=== PATIENT | female | born 1975 | race Caucasian/White ===

== ENCOUNTER 2018-01-15 15:37 | Emergency (ER) | payer OTHER ==
[2018-01-15 17:02] VITALS: BP 115/74; PULSE 77; TEMP 99.9; BMI 26.2
[2018-01-15] MEDS ORDERED: IBUPROFEN 600 MG TABLET (FP) PO ONE ×2 (17:32→17:35)
--- NOTE | 2018-01-15 18:15 | PDOC ---
History of Present Illness - General Chief Complaint: Cold Symptoms Stated Complaint: FEVER, COUGH Time Seen by Provider: 01/15/18 17:00 History Source: Patient Exam Limitations: No Limitations - History of Present Illness Initial Comments: 01/15/18 17:32 42-year-old female presents to emergency room with complaints of myalgia, arthralgia, fever, cough worsening at night for the past 3 days. Patient states to the family member's home with similar symptoms. Patient states took Tylenolwith moderate relief for fever and states has been taking Robitussin with moderate relief of cough. Patient has no other complaints including difficulty breathing, headache, sore throat, ear pain neck stiffness, abdominal pain, or rash. Timing/Duration: reports: just prior to arrival Severity: reports: mild Possible Cause: Yes: no prior episodes Associated Symptoms: reports: cough, fever/chills Past History - Travel Traveled outside of the country in the last 30 days: Yes If so, where?: [place] Close contact w/someone who was outside of country & ill: No - Past Medical History Allergies/Adverse Reactions: Allergies Allergy/AdvReac Type Severity Reaction Status Date / Time No Known Allergies Allergy Verified 01/15/18 17:02 Home Medications: Ambulatory Orders NK [No Known Home Medication] 01/15/18 COPD: No - Suicide/Smoking/Psychosocial Hx Smoking History: Never smoked Have you smoked in the past 12 months: No Information on smoking cessation initiated: No Hx Alcohol Use: No Drug/Substance Use Hx: No Substance Use Type: None Patient Lives Alone: No Lives with/in: spouse/SO Review of Systems - Review of Systems Able to Perform ROS?: Yes Constitutional: Yes: Fever HEENTM: No: Symptoms Reported Respiratory: Yes: Cough Cardiac (ROS): No: Symptoms Reported ABD/GI: No: Symptoms Reported Musculoskeletal: Yes: Joint Pain, Muscle Pain Integumentary: No: Symptoms Reported Neurological: No: Symptoms reported *Physical Exam - Vital Signs Last Vital Signs Temp Pulse Resp BP Pulse Ox 99.9 F H 77 17 115/74 100 01/15/18 17:00 01/15/18 17:00 01/15/18 17:00 01/15/18 17:00 01/15/18 17:00 - Physical Exam General Appearance: Yes: Nourished, Appropriately Dressed. No: Apparent Distress HEENT: positive: EOMI, SUZAN, TMs Normal, Pharynx Normal. negative: Pale Conjunctivae Neck: positive: Normal Thyroid Respiratory/Chest: positive: Lungs Clear, Normal Breath Sounds. negative: Respiratory Distress, Accessory Muscle Use Cardiovascular: positive: Regular Rhythm, Regular Rate. negative: Murmur Gastrointestinal/Abdominal: positive: Soft. negative: Tenderness Integumentary: positive: Normal Color, Warm, Moist Neurologic: positive: Motor Strength 5/5 Medical Decision Making - Medical Decision Making 01/15/18 18:16 CC: URI s/s. no meds taken today Exam: no acute findings. Plan: influenza and motrin 01/15/18 18:17 Influenza swab negative *DC/Admit/Observation/Transfer Diagnosis at time of Disposition: Cough, Fever - Discharge Dispostion Disposition: HOME Condition at time of disposition: Good - Referrals - Patient Instructions Printed Discharge Instructions: DI for Common Cold Additional Instructions: Take Motrin or Tylenol for pain or fever. Drink plenty of fluids and rest as needed. - Post Discharge Activity
== END 2018-01-15 18:22 | disposition home or self-care (01) ==
LOC: JERFT 15:37
DX: J00 Acute nasopharyngitis [common cold] (principal)
CPT/HCPCS: 87804; 99281-25

== ENCOUNTER 2018-03-24 22:38 | Observation (INO) | payer OTHER ==
[2018-03-24 22:49] VITALS: BMI 27.3
--- NOTE | 2018-03-25 00:17 | PDOC ---
History of Present Illness - General History Source: Patient, Spouse - History of Present Illness Initial Comments: 03/25/18 00:34 The patient is a 42 year old female with no past medical history here today for evaluation of abdominal pain. The patient reports that her abdominal pain began 3 days ago, is constant, and is localized to the right upper quadrant. She reports associated cough, nausea, and vomiting (3 episodes last night) and notes that she did not eat today. The patient reports taking aleve and motrin which did not help. Patient denies headache, lightheadedness. Denies fever, chills. Denies chest pain, shortness of breath. Denies diarrhea. Denies lower extremity edema. Allergies: NKA Social history: denies tobacco and alcohol use Surgical history: (6 years ago) PCP: Fanny Sheffield <Lázaro Arias - Last Filed: 03/25/18 00:38> <Yaya Downey - Last Filed: 03/25/18 00:50> - General Chief Complaint: Pain, Acute Stated Complaint: VOMMITING AND STOMACH PAIN Time Seen by Provider: 03/25/18 00:16 Past History <Lázaro Arias - Last Filed: 03/25/18 00:38> - Past Medical History COPD: No - Suicide/Smoking/Psychosocial Hx Smoking History: Never smoked Have you smoked in the past 12 months: No Information on smoking cessation initiated: No Hx Alcohol Use: No Drug/Substance Use Hx: No Substance Use Type: None <Yaya Downey - Last Filed: 03/25/18 00:50> - Past Medical History Allergies/Adverse Reactions: Allergies Allergy/AdvReac Type Severity Reaction Status Date / Time No Known Allergies Allergy Verified 03/24/18 22:48 Home Medications: Ambulatory Orders NK [No Known Home Medication] 01/15/18 Review of Systems - Review of Systems Able to Perform ROS?: Yes Comments:: 03/25/18 00:34 CONSTITUTIONAL: No fever, no chills, no fatigue EYES: No visual changes ENT: No ear pain, no sore throat CARDIOVASCULAR: No chest pain, no palpitations RESPIRATORY: +cough. no SOB GI: +nausea. +right upper quadrant abdominal pain. +vomiting. no constipation, no diarrhea GENITOURINARY: No dysuria, no frequency, no hematuria MUSKULOSKELETAL: No backpain, no joint pain, no myalgias SKIN: No rash NEURO: No headache <Lázaro Arias - Last Filed: 03/25/18 00:38> *Physical Exam - Vital Signs Last Vital Signs Temp Pulse Resp BP Pulse Ox 97.6 F 85 16 134/54 L 97 03/24/18 22:46 03/24/18 22:46 03/24/18 22:46 03/24/18 22:46 03/24/18 22:46 - Physical Exam Comments: 03/25/18 00:38 CONSTITUTIONAL: Well-appearing; well-nourished; in no apparent distress HEAD: Normocephalic; atraumatic EYES: PERRL; EOM intact, no scleral icterus ENMT: +dry mucous membranes. External appears normal; normal oropharynx NECK: Supple; non-tender; no cervical lymphadenopathy CARD: Normal S1, S2; no murmurs, rubs, or gallops RESP: Normal chest excursion with respiration; breath sounds clear and equal bilaterally; no wheezes, rhonchi, or rales ABD: +right upper quadrant tenderness. +[place] sign. Soft, non-distended; no palpable organomegaly, no palpable hernias EXT: Normal ROM in all four extremities; non-tender to palpation; distal pulses intact SKIN: Warm, dry, no rash NEURO: No focal neurological deficiencies. <Lázaro Arias - Last Filed: 03/25/18 00:38> - Vital Signs Last Vital Signs Temp Pulse Resp BP Pulse Ox 97.6 F 85 16 134/54 L 97 03/24/18 22:46 03/24/18 22:46 03/24/18 22:46 03/24/18 22:46 03/24/18 22:46 <Yaya Downey - Last Filed: 03/25/18 00:50> Moderate Sedation - Procedure Monitoring Vital Signs: Procedure Monitoring Vital Signs Temperature 97.6 F 03/24/18 22:46 Pulse Rate 85 03/24/18 22:46 Respiratory Rate 16 03/24/18 22:46 Blood Pressure 134/54 L 03/24/18 22:46 O2 Sat by Pulse Oximetry (%) 97 03/24/18 22:46 <Lázaro Arias - Last Filed: 03/25/18 00:38> - Procedure Monitoring Vital Signs: Procedure Monitoring Vital Signs Temperature 97.6 F 03/24/18 22:46 Pulse Rate 85 03/24/18 22:46 Respiratory Rate 16 03/24/18 22:46 Blood Pressure 134/54 L 03/24/18 22:46 O2 Sat by Pulse Oximetry (%) 97 03/24/18 22:46 <Yaya Downey - Last Filed: 03/25/18 00:50> ED Treatment Course - LABORATORY CBC & Chemistry Diagram: 03/25/18 00:41 03/25/18 00:41 <Yaya Downey - Last Filed: 03/25/18 00:50> Medical Decision Making - Medical Decision Making 03/25/18 00:49 Patient is a 42-year-old female who presents with signs and symptoms of acute biliary colic. Patient is afebrile and in moderate distress. We'll obtain CBC/ CMP/lipase/UA. Will administer IV Toradol and IV fluids. Will obtain right upper quadrant ultrasound. Will reassess. <Yaya Downey - Last Filed: 03/25/18 00:50> *DC/Admit/Observation/Transfer - Attestations Scribe Attestion: 03/25/18 00:35 Documentation prepared by ALYSON Potter, acting as medical records library professor for Yaya Downey MD. <Lázaro Arias - Last Filed: 03/25/18 00:38> - Attestations Physician Attestion: 03/25/18 00:49 The documentation was prepared by the scribe under my direct supervision. I have reviewed the documentation which correctly represents the findings, medical decision-making and critical action taken by me. <Yaya Downey - Last Filed: 03/25/18 00:50> - Referrals Referrals: Fanny Sheffield MD [Primary Care Provider] - - Patient Instructions - Post Discharge Activity
[2018-03-25] MEDS ORDERED: SODIUM CHLORIDE 1,000 ML IV STA (00:32)
[2018-03-25] MEDS ORDERED: KETOROLAC TROMETHAMINE 30 MG/1 ML VIAL IVPUSH ONE (00:32)
[2018-03-25] MEDS ORDERED: KETOROLAC TROMETHAMINE 30 MG/1 ML VIAL ONE (00:34)
[2018-03-25 01:04] LABS: BASO % 0.5 % (0-2.0); EOS % 3.6 % (0-4.5); HEMOGLOBIN 11.4 GM/dL (10.7-15.3); LYMPH % 21.2 % (8-40); MCH 27.9 pg (25.7-33.7); MCHC 34.5 g/dl (32.0-36.0); MEAN CELL VOLUME 80.8 fl (80-96); MEAN PLT VOLUME 9.5 fl (7.5-11.1); MONO % 6.2 % (3.8-10.2); NEUT % 68.5 % (42.8-82.8); PLATELET COUNT 251 K/MM3 (134-434); RBC 4.09 M/mm3 (3.60-5.2); RDW 12.7 % (11.6-15.6); WHITE BLOOD COUNT 7.8 K/mm3 (4.0-10.0)
[2018-03-25 01:19] LABS: INR 0.94 (0.83-1.09); PROTHROMBIN TIME (PATIENT) 11.1 SEC (9.7-13.0)
[2018-03-25 01:37] LABS: ALBUMIN 2.3 g/dl (3.4-5.0); ALK PHOS 50 U/L (45-117); ANION GAP 6 MMOL/L (8-16); BILIRUBIN,TOTAL 0.2 mg/dL (0.2-1); BLOOD UREA NITROGEN 13 mg/dL (7-18); CHLORIDE 116 mmol/L (98-107); CO2 22 mmol/L (21-32); CREATININE 0.3 mg/dL (0.55-1.3); GLUCOSE,RANDOM 86 mg/dL (74-106); LIPASE 208 U/L (73-393); SGOT/AST 12 U/L (15-37); SGPT/ALT 25 U/L (13-61); SODIUM 144 mmol/L (136-145); TOT PROT 5.3 g/dl (6.4-8.2)
[2018-03-25 01:38] LABS: POTASSIUM 2.9 mmol/L (3.5-5.1)
[2018-03-25] MEDS ORDERED: POTASSIUM CHLORIDE TABS 20 MEQ TABLET.ER (FP) PO ONE ×2 (01:39→01:44)
[2018-03-25] MEDS ORDERED: KCL 10 MEQ IVPB 10 MEQ/100 ML INFUS.BAG IVPB ONE (01:45)
[2018-03-25 02:00] LABS: URINE APPEARANCE SLCLOUDY; URINE BILIRUBIN NEGATIVE (<2.0 mg/dL); URINE COLOR YELLOW; URINE GLUCOSE (UA) NEGATIVE (NEGATIVE); URINE KETONE NEGATIVE (NEGATIVE); URINE LEUK ESTERASE TRACE (NEGATIVE); URINE NITRITE POSITIVE (NEGATIVE); URINE PROTEIN NEGATIVE (NEGATIVE)
[2018-03-25 02:06] LABS: EPI CELLS FEW /HPF (FEW); URINE BACTERIA RARE /hpf (NONE SEEN); URINE MUCUS RARE
[2018-03-25] MEDS: KCL 10 MEQ IVPB 10 MEQ/100 ML INFUS.BAG IVPB SCH ×2 (02:56→07:04)
--- NOTE | 2018-03-25 04:31 | PDOC ---
*Physical Exam - Vital Signs Last Vital Signs Temp Pulse Resp BP Pulse Ox 97.6 F 85 16 134/54 L 97 03/24/18 22:46 03/24/18 22:46 03/24/18 22:46 03/24/18 22:46 03/24/18 22:46 ED Treatment Course - LABORATORY CBC & Chemistry Diagram: 03/25/18 00:41 03/25/18 00:41 - ADDITIONAL ORDERS Additional order review: Laboratory Results 03/25/18 03/25/18 03/25/18 01:42 00:44 00:41 PT with INR INR Sodium 144 Potassium 2.9 L* Chloride 116 H Carbon Dioxide 22 Anion Gap 6 L BUN 13 Creatinine 0.3 L Creat Clearance w eGFR > 60 Random Glucose 86 Calcium 7.0 L Magnesium 1.6 L Total Bilirubin 0.2 AST 12 L ALT 25 Alkaline Phosphatase 50 Total Protein 5.3 L Albumin 2.3 L Lipase 208 Serum , Qual Urine Color Yellow Urine Appearance Slcloudy Urine pH 6.0 Ur Specific [place] 1.026 Urine Protein Negative Urine Glucose (UA) Negative Urine Ketones Negative Urine Blood 1+ H Urine Nitrite Positive Urine Bilirubin Negative Urine Urobilinogen 2.0 H Ur Leukocyte Esterase Trace Urine WBC (Auto) 2 Urine RBC (Auto) 3 Ur Epithelial Cells Few Urine Bacteria Rare Urine Mucus Rare 03/25/18 03/25/18 00:41 00:41 PT with INR 11.10 INR 0.94 Sodium Potassium Chloride Carbon Dioxide Anion Gap BUN Creatinine Creat Clearance w eGFR Random Glucose Calcium Magnesium Total Bilirubin AST ALT Alkaline Phosphatase Total Protein Albumin Lipase Serum , Qual Negative Urine Color Urine Appearance Urine pH Ur Specific [place] Urine Protein Urine Glucose (UA) Urine Ketones Urine Blood Urine Nitrite Urine Bilirubin Urine Urobilinogen Ur Leukocyte Esterase Urine WBC (Auto) Urine RBC (Auto) Ur Epithelial Cells Urine Bacteria Urine Mucus 03/25/18 00:41 RBC 4.09 MCV 80.8 MCHC 34.5 RDW 12.7 MPV 9.5 Neutrophils % 68.5 Lymphocytes % 21.2 Monocytes % 6.2 Eosinophils % 3.6 Basophils % 0.5 - Medications Given in the ED: ED Medications Discontinued Medications Generic Name Dose Route Start Last Admin Trade Name Freq PRN Reason Stop Dose Admin Sodium Chloride 1,000 mls @ 1,000 mls/hr 03/25/18 00:32 03/25/18 00:45 Normal Saline - IV 03/25/18 01:31 1,000 mls/hr ASDIR STA Administration Potassium Chloride 10 meq in 100 mls @ 100 mls/hr 03/25/18 01:45 03/25/18 02: 56 Potassium Chloride 10 Meq Premix Ivpb - IVPB 03/25/18 03:44 100 mls/hr Q60M DEMETRIA Administration Ketorolac Tromethamine 30 mg 03/25/18 00:32 03/25/18 00:45 Toradol Injection - IVPUSH 03/25/18 00:33 30 mg ONCE ONE Administration Potassium Chloride 40 meq 03/25/18 01:39 03/25/18 01:52 K-Dur - PO 03/25/18 01:40 40 meq ONCE ONE Administration Medical Decision Making - Medical Decision Making 03/25/18 04:30 Patient received as sign out RUQ px w/ n/v f/u imaging repeat chem and ekg after K+ repletion completed 03/25/18 06:55 repeat ekg unremarkable repeat K+ likely contaminated, result >10, will repeat K+ level *DC/Admit/Observation/Transfer - Referrals Referrals: Fanny Sheffield MD [Primary Care Provider] - - Patient Instructions - Post Discharge Activity
[2018-03-25] MEDS ORDERED: MAGNESIUM OXIDE 400 MG TABLET (FP) PO ONE (04:52)
[2018-03-25] MEDS ORDERED: MAGNESIUM OXIDE 400 MG TABLET (FP) ONE (04:54)
[2018-03-25] MEDS ORDERED: ACETAMINOPHEN 1000 MG/100 ML VIAL (NON FORMULARY) IVPB ONE (08:20)
[2018-03-25] MEDS ORDERED: ACETAMINOPHEN INJECTION 100 ML IVPB ONE (08:48)
--- NOTE | 2018-03-25 11:36 | HP ---
Admitting History and Physical - Primary Care Physician PCP: Fanny Sheffield - Admission Chief Complaint: abdominal pain History of Present Illness: The patient is a 42 year old female with no past medical history here today for evaluation of abdominal pain. The patient reports that her abdominal pain began 3 days ago, is constant, and is localized to the right upper quadrant. She reports associated cough, nausea, and vomiting (3 episodes last night) and notes that she did not eat today. The patient reports taking aleve and motrin which did not help per patient her abdominal pain suddenly started more in right upper quadrant for which she came to ER, no fever at home did have episodes of vomiting and nausea and cough she has been complaining of cough for last 3 months in ER K 2.9 and Mag 1.6- repleted ct scan done no acute pathology cxr no abnormality no fever no wbc count History Source: Patient - Smoking History Smoking history: Never smoked Have you smoked in the past 12 months: No - Alcohol/Substance Use Hx Alcohol Use: No Home Medications - Allergies Allergies/Adverse Reactions: Allergies Allergy/AdvReac Type Severity Reaction Status Date / Time No Known Allergies Allergy Verified 03/24/18 22:48 - Home Medications Home Medications: Ambulatory Orders NK [No Known Home Medication] 01/15/18 Review of Systems - Review of Systems Respiratory: reports: Cough Gastrointestinal: reports: Abdominal Pain Physical Examination Vital Signs: Vital Signs Temperature 98.0 F 03/25/18 10:54 Pulse Rate 74 03/25/18 10:54 Respiratory Rate 18 03/25/18 10:54 Blood Pressure 142/69 03/25/18 10:54 O2 Sat by Pulse Oximetry (%) 98 03/25/18 10:54 Constitutional: Yes: Mild Distress Cardiovascular: Yes: Regular Rate and Rhythm, S1, S2 Respiratory: Yes: Diminished Gastrointestinal: Yes: Soft, Tenderness, Epigastrium, Other (right upper quadrant) Edema: No Neurological: Yes: Alert, Oriented Labs: CBC, BMP 03/25/18 00:41 03/25/18 07:20 Imaging - Results X-ray: Report Reviewed Cat Scan: Pending, Report Reviewed (contracted gall bladder no colitis,no appendicitis) Ultrasound: Report Reviewed (contracted gall bladder) Problem List - Problems (1) Abdominal pain Assessment/Plan: ct scan and gall bladder noted no acute pathology normal LFTs looks like this pain is more muscular skeletal pain, ribs pain secondary to coughing cxr noted as well no acute disease will correct electrolytes ivf for now with trial of clear liquids protonix since she says that she had some epigastric burning when vomitting early ambulation scd in bed cough syrup normal wbc no fever observation for now Code(s): R10.9 - UNSPECIFIED ABDOMINAL PAIN (2) Electrolyte abnormality Assessment/Plan: recheck labs now potassium improved awaiting magnesium level corrected calcium ok Code(s): E87.8 - OTH DISORDERS OF ELECTROLYTE AND FLUID BALANCE, NEC (3) Cough Assessment/Plan: cxr negtive check influenza rapid test most likely musculoskele petra pain PPI tussin syrup no wheezing or crackles on exam Code(s): R05 - COUGH
[2018-03-25] MEDS ORDERED: D5-1/2NS+20 MEQ KCL - 20 MEQ/1,000 ML INFUS.BAG IV SCH (11:45)
[2018-03-25] MEDS ORDERED: PANTOPRAZOLE SODIUM 40 MG VIAL IVPUSH SCH (11:45)
[2018-03-25] MEDS: DEXTROSE 5%-0.45% SALINE 1,000 ML IV SCH (12:00)
--- NOTE | 2018-03-25 12:44 | EKG ---
Test Reason : Blood Pressure : / mmHG Vent. Rate : 080 BPM Atrial Rate : 080 BPM P-R Int : 140 ms QRS Dur : 076 ms QT Int : 372 ms P-R-T Axes : 009 008 030 degrees QTc Int : 429 ms NORMAL SINUS RHYTHM NORMAL ECG NO PREVIOUS ECGS AVAILABLE Confirmed by SARAH AVILA MD ([id number]) on 03/25/2018 12:44:25 PM Referred By: Confirmed By:SARAH AVILA MD
[2018-03-25 13:03] LABS: ALBUMIN 2.9 g/dl (3.4-5.0); ALK PHOS 64 U/L (45-117); ANION GAP 7 MMOL/L (8-16); BILIRUBIN,TOTAL 0.6 mg/dL (0.2-1); BLOOD UREA NITROGEN 8 mg/dL (7-18); CALCIUM 8.6 mg/dL (8.5-10.1); CHLORIDE 108 mmol/L (98-107); CO2 22 mmol/L (21-32); CREATININE 0.4 mg/dL (0.55-1.3); GLUCOSE,RANDOM 98 mg/dL (74-106); MAGNESIUM 1.9 mg/dL (1.8-2.4); POTASSIUM 4.2 mmol/L (3.5-5.1); SGOT/AST 17 U/L (15-37); SGPT/ALT 33 U/L (13-61); SODIUM 137 mmol/L (136-145); TOT PROT 6.5 g/dl (6.4-8.2)
--- NOTE | 2018-03-25 19:16 | CON.GI ---
Consult Consult Specialty:: GI Referred by:: Nettie/md bear - History of Present Illness History of Present Illness: Patient admitted because of ruq pain. For several weeks she has chronic cough. The past three days developed RUQ pain, no nausea and no vomiting. - Alcohol/Substance Use Hx Alcohol Use: No - Smoking History Smoking history: Never smoked Have you smoked in the past 12 months: No Home Medications - Allergies Allergies/Adverse Reactions: Allergies Allergy/AdvReac Type Severity Reaction Status Date / Time No Known Allergies Allergy Verified 03/24/18 22:48 - Home Medications Home Medications: Ambulatory Orders NK [No Known Home Medication] 01/15/18 Review of Systems - Review of Systems Constitutional: denies: No Symptoms, Chills, Diaphoresis, Fever, Lethargy, Loss of Appetite, Malaise, Night Sweats, Unintentional Wgt. Loss, Weakness, Other Eyes: denies: No Symptoms, Blind Spots, Blurred Vision, Double Vision, Eye Pain , Floaters, Photophobia, Recent Change in Vision, Other HENT: denies: No Symptoms, Difficult Swallowing, Ear Discharge, Ear Pain, Epistaxis, Gingival Bleeding, Hearing Loss, Mouth Swelling, Nasal Congestion, Ocular Prosthesis, Throat Pain, Toothache, Ringing in Ears, Other Cardiovascular: denies: No Symptoms, Chest Pain, Edema, Palpitations, Shortness of Breath, Other Respiratory: denies: No Symptoms, Cough, Exercise Intolerance, Hemoptysis, Orthopnea, PND, Snoring, SOB, SOB on Exertion, Wheezing, Other Gastrointestinal: denies: No Symptoms, Abdominal Pain, Bloating, Constipation, Diarrhea, Dysphagia, Indigestion, Melena, Nausea, Rectal Bleeding, Vomiting, Vomiting Blood, Other Musculoskeletal: reports: Other (pain over the 5th, 6th, 7 th rib) Physical Exam-GI Vital Signs: Vital Signs Temperature 98.4 F 03/25/18 18:41 Pulse Rate 79 03/25/18 18:41 Respiratory Rate 20 03/25/18 18:41 Blood Pressure 104/60 03/25/18 18:41 O2 Sat by Pulse Oximetry (%) 98 03/25/18 10:54 Constitutional: Yes: Well Nourished Eyes: Yes: Conjunctiva Clear HENT: Yes: Atraumatic, Tonsillar Exudate Cardiovascular: Yes: Regular Rate and Rhythm Respiratory: Yes: Regular Gastrointestinal Inspection: No: Ascites, Distention ...Auscultate: Yes: Normoactive Bowel Sounds ...Palpate: Yes: Soft. No: Firm/Rigid, Guarding, Hepatomegaly, Mass, Pulsatile Mass, Splenomegaly, Tenderness Musculoskeletal: Yes: Other (costovertebral tenderness over the right ribs which reproduces the pain) Labs: CBC, BMP 03/25/18 00:41 03/25/18 11:30 INR, PTT INR 0.94 (0.83-1.09) 03/25/18 00:41 Ambulatory Orders NK [No Known Home Medication] 01/15/18 Imaging - Results Cat Scan: Report Reviewed Ultrasound: Report Reviewed Problem List - Problems (1) Acute costochondritis Assessment/Plan: possibly due to history of chronic cough R>Ibuprofen 400mg tid Pantoprazole 40mg daily consider rib xrays advance diet Code(s): M94.0 - CHONDROCOSTAL JUNCTION SYNDROME [MARGARITATZE]
[2018-03-25] MEDS: PANTOPRAZOLE 40 MG TABLET (FP) PO SCH (20:25)
[2018-03-25] MEDS: IBUPROFEN 400 MG TABLET (FP) PO SCH (20:25)
[2018-03-25] MEDS: guaiFENesin 200 MG/10 ML 10 ML UNIT-DOSE CUPS PO PRN (20:26)
[2018-03-26] MEDS: DEXTROSE 5%-0.45% SALINE 1,000 ML IV SCH ×2 (01:24→12:00)
[2018-03-26] MEDS: IBUPROFEN 400 MG TABLET (FP) PO SCH ×3 (03:57→21:45)
[2018-03-26] MEDS: ACETAMINOPHEN 325 MG TABLET (FP) PO PRN (08:03)
--- NOTE | 2018-03-26 08:13 | PN ---
GI Progress Note Subjective: Patient complain of throbbing pain to RUQ near rib cage on exam this morning. Denies nausea or vomiting with pain. - Objective Vital Signs: Vital Signs Temperature 98.9 F 03/26/18 05:40 Pulse Rate 85 03/26/18 05:40 Respiratory Rate 20 03/26/18 05:40 Blood Pressure 116/63 03/26/18 05:40 O2 Sat by Pulse Oximetry (%) 98 03/26/18 03:58 Constitutional: Mild Distress Eyes: Yes: Conjunctiva Clear Cardiovascular: Yes: Regular Rate and Rhythm Respiratory: Yes: Regular, CTA Bilaterally Gastrointestinal Inspection: Yes: WNL ...Auscultate: Yes: Normoactive Bowel Sounds ...Palpate: Yes: Tenderness Neurological: Yes: Alert Labs: CBC, BMP 03/25/18 00:41 03/25/18 11:30 INR, PTT INR 0.94 (0.83-1.09) 03/25/18 00:41 Problem List - Problems (1) Acute costochondritis Code(s): M94.0 - CHONDROCOSTAL JUNCTION SYNDROME [MARGARITATZE]
[2018-03-26] MEDS: PANTOPRAZOLE 40 MG TABLET (FP) PO SCH (11:59)
--- NOTE | 2018-03-26 15:58 | PN ---
Progress Note, Physician Chief Complaint: R sided abdominal pain History of Present Illness: Previous events and notes reviewed awake and alert NAD Patient states pain currently controlled with tylenol and motrin prn Abdomen/Pelvic CT scan and US show no acute pathology - Current Medication List Current Medications: Active Medications Acetaminophen (Tylenol -) 650 mg PO Q6H PRN PRN Reason: PAIN LEVEL 4 - 6 Last Admin: 03/26/18 08:03 Dose: 650 mg Guaifenesin (Robitussin -) 10 ml PO Q6H PRN PRN Reason: COUGH Last Admin: 03/25/18 20:26 Dose: 10 ml Dextrose/Sodium Chloride (D5-1/2ns -) 1,000 mls @ 83 mls/hr IV ASDIR [facility] Last Admin: 03/26/18 12:00 Dose: Not Given Ibuprofen (Motrin -) 400 mg PO Q8H [facility] Last Admin: 03/26/18 11:59 Dose: 400 mg Pantoprazole Sodium (Protonix -) 40 mg PO DAILY [facility] Last Admin: 03/26/18 11:59 Dose: 40 mg - Objective Vital Signs: Vital Signs Temperature 97.9 F 03/26/18 14:54 Pulse Rate 84 03/26/18 14:54 Respiratory Rate 20 03/26/18 14:54 Blood Pressure 124/76 03/26/18 14:54 O2 Sat by Pulse Oximetry (%) 98 03/26/18 11:00 Constitutional: Yes: Well Nourished, No Distress, Calm Eyes: Yes: Conjunctiva Clear Neck: Yes: Supple Cardiovascular: Yes: Regular Rate and Rhythm Respiratory: Yes: Regular, CTA Bilaterally Gastrointestinal: Yes: Normal Bowel Sounds, Soft Musculoskeletal: Yes: WNL Extremities: Yes: WNL Edema: No Integumentary: Yes: WNL Neurological: Yes: Alert, Oriented Psychiatric: Yes: Alert, Oriented Labs: CBC, BMP 03/25/18 00:41 03/25/18 11:30 INR, PTT INR 0.94 (0.83-1.09) 03/25/18 00:41 <Nava Herrera - Last Filed: 03/26/18 16:00> - Current Medication List Current Medications: Active Medications Acetaminophen (Tylenol -) 650 mg PO Q6H PRN PRN Reason: PAIN LEVEL 4 - 6 Last Admin: 03/27/18 06:54 Dose: 650 mg Guaifenesin (Robitussin -) 10 ml PO Q6H PRN PRN Reason: COUGH Last Admin: 03/27/18 06:54 Dose: 10 ml Dextrose/Sodium Chloride (D5-1/2ns -) 1,000 mls @ 83 mls/hr IV ASDIR [facility] Last Admin: 03/27/18 04:30 Dose: 83 mls/hr Ibuprofen (Motrin -) 400 mg PO Q8H [facility] Last Admin: 03/27/18 04:23 Dose: Not Given Pantoprazole Sodium (Protonix -) 40 mg PO DAILY [facility] Last Admin: 03/26/18 11:59 Dose: 40 mg - Objective Vital Signs: Vital Signs Temperature 98.3 F 03/27/18 05:00 Pulse Rate 82 03/27/18 05:00 Respiratory Rate 18 03/27/18 05:00 Blood Pressure 113/56 L 03/27/18 05:00 O2 Sat by Pulse Oximetry (%) 98 03/27/18 02:19 Labs: CBC, BMP 03/25/18 00:41 03/25/18 11:30 INR, PTT INR 0.94 (0.83-1.09) 03/25/18 00:41 <Fanny Sheffield - Last Filed: 03/27/18 08:41> Problem List - Problems (1) Abdominal pain Code(s): R10.9 - UNSPECIFIED ABDOMINAL PAIN (2) Acute costochondritis Code(s): M94.0 - CHONDROCOSTAL JUNCTION SYNDROME [TIETZE] (3) Electrolyte abnormality Code(s): E87.8 - OTH DISORDERS OF ELECTROLYTE AND FLUID BALANCE, NEC (4) Cough Code(s): R05 - COUGH <Nava Herrera - Last Filed: 03/26/18 16:00> Assessment/Plan -cont with cough medicine -tylenol and motrin for pain management -GI recommendation appreciated -pending R rib xray -cont with pantoprazole daily -scd and dvt ppx -monitor electrolyte <Nava Herrera - Last Filed: 03/26/18 16:00> PATIENT SEEN AND EXAMINED AND I AGREE WITH ABOVE NOTE <Fanny Sheffield - Last Filed: 03/27/18 08:41>
[2018-03-26] MEDS: guaiFENesin 200 MG/10 ML 10 ML UNIT-DOSE CUPS PO PRN (21:45)
[2018-03-27] MEDS: IBUPROFEN 400 MG TABLET (FP) PO SCH ×2 (04:23→12:46)
[2018-03-27] MEDS: DEXTROSE 5%-0.45% SALINE 1,000 ML IV SCH ×2 (04:30→10:45)
[2018-03-27] MEDS: guaiFENesin 200 MG/10 ML 10 ML UNIT-DOSE CUPS PO PRN (06:54)
[2018-03-27] MEDS: ACETAMINOPHEN 325 MG TABLET (FP) PO PRN (06:54)
[2018-03-27] MEDS: PANTOPRAZOLE 40 MG TABLET (FP) PO SCH ×2 (09:46→21:50)
--- NOTE | 2018-03-27 12:33 | PN ---
Progress Note, Physician History of Present Illness: c/o cough and rt sided chest pain - Current Medication List Current Medications: Active Medications Acetaminophen (Tylenol -) 650 mg PO Q6H DEMETRIA Guaifenesin (Robitussin -) 10 ml PO Q6H PRN PRN Reason: COUGH Last Admin: 03/27/18 06:54 Dose: 10 ml Pantoprazole Sodium (Protonix -) 40 mg PO BID DEMETRIA - Objective Vital Signs: Vital Signs Temperature 98.3 F 03/27/18 05:00 Pulse Rate 80 03/27/18 09:00 Respiratory Rate 18 03/27/18 09:00 Blood Pressure 130/80 03/27/18 09:00 O2 Sat by Pulse Oximetry (%) 97 03/27/18 10:00 Cardiovascular: Yes: Regular Rate and Rhythm Respiratory: Yes: Regular, CTA Bilaterally, Diminished (at the bases) Gastrointestinal: Yes: Normal Bowel Sounds, Soft Labs: CBC, BMP 03/25/18 00:41 03/25/18 11:30 INR, PTT INR 0.94 (0.83-1.09) 03/25/18 00:41 Problem List - Problems (1) Rib fracture Assessment/Plan: -Pain meds -monitor Code(s): S22.39XA - FRACTURE OF ONE RIB, UNSP SIDE, INIT FOR CLOS FX (2) Pulmonary nodule Assessment/Plan: - pulm consult Code(s): R91.1 - SOLITARY PULMONARY NODULE (3) Abdominal pain Assessment/Plan: -resolved -ppi Code(s): R10.9 - UNSPECIFIED ABDOMINAL PAIN (4) Electrolyte abnormality Assessment/Plan: - resolved Code(s): E87.8 - OTH DISORDERS OF ELECTROLYTE AND FLUID BALANCE, NEC (5) Cough Assessment/Plan: - nebs Code(s): R05 - COUGH
[2018-03-27] MEDS: ACETAMINOPHEN 325 MG TABLET (FP) PO SCH ×2 (12:46→18:13)
--- NOTE | 2018-03-27 14:19 | PN ---
Progress Note (short form) - Note Progress Note: PULMONARY CONSULTATION DICTATED 03/27/18 IMP COUGH ? HYPER-REACTIVE AIRWAY,? GERD R RIB FX RUL NODULE LIKELY POST INFLAMMATORY,GRANULOMA RUQ PAIN PLAN ROBITUSSIN AC INCENTIVE SPIROMETER ANALGESICS PFTS OUTPATIENT F/U CHEST CT [address] MCDANIEL Problem List - Problems (1) Abdominal pain Code(s): R10.9 - UNSPECIFIED ABDOMINAL PAIN (2) Pulmonary nodule Code(s): R91.1 - SOLITARY PULMONARY NODULE (3) Rib fracture Code(s): S22.39XA - FRACTURE OF ONE RIB, UNSP SIDE, INIT FOR CLOS FX (4) Cough Code(s): R05 - COUGH
--- NOTE | 2018-03-27 14:38 | CONS ---
DATE OF CONSULTATION: DATE OF DICTATION: 03/27/2018 REFERRING PHYSICIAN: Chet Gomez MD HISTORY OF PRESENT ILLNESS: The patient is a 42-year-old [place] female without any significant past medical history, a nonsmoker, admitted to [facility] with a complaint of right-sided abdominal pain, constant in nature, in right upper quadrant. Patient also complained about a cough approximately 3 months as well as nausea and vomiting, 3 episodes the night prior to admission. She denied any complaints of hemoptysis. Patient apparently is taking Aleve and Motrin, which did not help. She presented to the emergency room with the above. In the ER, she was noted to be hypokalemic, hypomagnesemic, which were repleted. She had a CT scan of the abdomen performed which revealed no evidence of acute pathology. She was noted to have a small right pleural effusion. CT scan of the chest performed revealed a nondisplaced fracture of the right lateral 7th rib. No other fractures were appreciated. She was also noted to have a 4-mm nodule on her right upper lobe. Patient denies any history of occupational exposure to chemical fumes. She states that the cough has been present for approximately 3 months, which she developed after arriving in [place] from [facility]. She denies any history of asthma or bronchitis in the past. She states that the cough does not changed with inspiration, cold air or exertion., it is present throughout the day. She does complain of occasional shortness of breath secondary to the cough. She does have a family history of asthma for a son and a mother. She denies any history of asthma. There is no history of reflux. No fevers, weight loss, night sweats, or pneumonia. PAST MEDICAL HISTORY: Again is unremarkable. SOCIAL HISTORY: Born in [facility], a nonsmoker, no occupational exposures. CURRENT MEDICATIONS: Include Robitussin, Protonix. REVIEW OF SYSTEMS: Positive for cough. Positive for chest pain. No fever, no chills, no hemoptysis, no abdominal pain at this time. No lower extremity edema. PHYSICAL EXAMINATION: General: The patient is a well-developed, well-nourished female, awake, alert , in no acute distress. Vital signs: She is afebrile, blood pressure 113/68, respiratory rate is 18. HEENT: Head is normocephalic atraumatic. Neck: Supple. Heart: Regular, S1, S2. Chest: Clear. Abdomen: Soft. Bowel sounds are positive. Extremities: No cyanosis or edema. LABORATORIES: WBC is 7.8, hemoglobin 11.4, hematocrit 33, platelet count of 251 ,000. BUN 8, creatinine 0.4. Chest CT as noted. IMPRESSION: 1. Cough, etiology to be determined. Possibly secondary to hyper-reactive airway or possible reflux. 2. Right upper lobe nodule, most likely post-inflammatory. 3. Right upper quadrant pain, possibly secondary to rib fracture. PLAN: Analgesics, incentive spirometer, obtain followup chest CT approximately in 1 year. Also have PFTS as an outpatient and incentive spirometer and analgesics. KIRIT MCDANIEL M.D. LURDES/[id number] MTDD
[2018-03-28] MEDS: ACETAMINOPHEN 325 MG TABLET (FP) PO SCH ×3 (00:27→12:02)
[2018-03-28 06:22] VITALS: TEMP 98.2
[2018-03-28] MEDS: PANTOPRAZOLE 40 MG TABLET (FP) PO SCH (10:44)
--- NOTE | 2018-03-28 11:48 | DS ---
Physical Examination Vital Signs: Vital Signs Temperature 98.2 F 03/28/18 05:00 Pulse Rate 77 03/28/18 05:00 Respiratory Rate 17 03/28/18 05:00 Blood Pressure 104/56 L 03/28/18 05:00 O2 Sat by Pulse Oximetry (%) 98 03/28/18 03:00 Labs: CBC, BMP 03/25/18 00:41 03/25/18 11:30 Discharge Summary Reason For Visit: ABDOMINAL PAIN Current Active Problems Abdominal pain (Acute) Acute costochondritis (Acute) Electrolyte abnormality (Acute) Pulmonary nodule (Acute) Rib fracture (Acute) - Instructions Referrals: Fanny Sheffield MD [Primary Care Provider] - - Home Medications Comprehensive Discharge Medication List: Ambulatory Orders Acetaminophen [Tylenol .Regular Strength -] 650 mg PO Q6H PRN tablet 03/28/18 Ibuprofen [Motrin -] 400 mg PO Q8H #30 tablet 03/28/18 Ipratropium/Albuterol Sulfate [Combivent Respimat Inhal [place]] 4 gm IH QID #1 aer.w.adap 03/28/18 Pantoprazole Sodium [Protonix -] 40 mg PO DAILY #30 tablet.ec 03/28/18
[2018-03-28 11:56] VITALS: BP 110/60; PULSE 80
--- NOTE | 2018-03-29 09:53 | EKG ---
Test Reason : Blood Pressure : / mmHG Vent. Rate : 083 BPM Atrial Rate : 083 BPM P-R Int : 132 ms QRS Dur : 076 ms QT Int : 368 ms P-R-T Axes : 004 013 028 degrees QTc Int : 432 ms NORMAL SINUS RHYTHM NORMAL ECG WHEN COMPARED WITH ECG OF 25-MAR-2018 01:46, NO SIGNIFICANT CHANGE WAS FOUND Confirmed by GARIMA CHRISTIANSON MD ([id number]) on 03/29/2018 9:53:09 AM Referred By: Confirmed By:GARIMA CHRISTIANSON MD
== END 2018-03-28 12:45 | disposition home or self-care (01) ==
LOC: JER 22:38 → JERBED 03-25 08:21 → UNDOADMOB 03-25 08:21 → J5S 03-25 10:08 → JERBED 03-25 10:08 → OBSVTOIN 03-25 11:42 → INTOOBSV 03-25 11:42 → J5S 03-25 11:58 → JERBED 03-25 11:58
PROVIDERS: ADMIT Family Medicine; ATTEND Family Medicine
PROC: 3E0333Z Introduction of Anti-inflammatory into Peripheral Vein, Percutaneous Approach (ICD-10-PCS; principal; 2018-03-25)
PROC: 3E033NZ Introduction of Analgesics, Hypnotics, Sedatives into Peripheral Vein, Percutaneous Approach (ICD-10-PCS; 2018-03-25)
PROC: 3E033GC Introduction of Other Therapeutic Substance into Peripheral Vein, Percutaneous Approach (ICD-10-PCS; 2018-03-25)
PROC: 3E0337Z Introduction of Electrolytic and Water Balance Substance into Peripheral Vein, Percutaneous Approach (ICD-10-PCS; 2018-03-25)
DX: M94.0 Chondrocostal junction syndrome [Tietze] (principal); R10.11 Right upper quadrant pain; R05 Cough; E87.8 Other disorders of electrolyte and fluid balance, not elsewhere classified; R91.1 Solitary pulmonary nodule
CPT/HCPCS: 36415; 71046-TC-FY; 71101-TC-RT-FY; 71260-TC; 74177-TC; 76705-TC; 80053; 81003; 81015; 83690; 83735; 84132; 84703; 85025; 85610; 86480; 87804; 93005; 93010; 94010; 96361; 96374; 96375; 99282-25; G0378; J0131; J7030

== ENCOUNTER 2018-07-31 14:30 | Emergency (ER) | payer SELFPAY ==
[2018-07-31 14:47] VITALS: BP 117/71; PULSE 72; TEMP 97.6; BMI 25.6
[2018-07-31 15:54] LABS: PH,URINE 5.5 (5.0-8.0); URINE APPEARANCE CLEAR; URINE BACTERIA 78.2 /hpf (NEGATIVE); URINE BILIRUBIN NEGATIVE (NEGATIVE); URINE CASTS 1 /lpf (0-8); URINE COLOR YELLOW; URINE GLUCOSE (UA) NEGATIVE (NEGATIVE); URINE KETONE NEGATIVE (NEGATIVE); URINE LEUK ESTERASE NEGATIVE (NEGATIVE); URINE NITRITE NEGATIVE (NEGATIVE); URINE PROTEIN NEGATIVE (NEGATIVE); URINE RBC 1 /hpf (0-4); URINE UROBILINOGEN 0.2 mg/dL (0.2-1.0); URINE WBC 1 /hpf (0-5)
--- NOTE | 2018-07-31 15:59 | PDOC ---
History of Present Illness - General Chief Complaint: Vaginal Sxs Stated Complaint: VAGINAL RASH/ INFECTION Time Seen by Provider: 07/31/18 14:53 Past History - Past Medical History Allergies/Adverse Reactions: Allergies Allergy/AdvReac Type Severity Reaction Status Date / Time No Known Allergies Allergy Verified 03/24/18 22:48 Home Medications: Ambulatory Orders Acetaminophen [Tylenol .Regular Strength -] 650 mg PO Q6H PRN tablet 03/28/18 Ibuprofen [Motrin -] 400 mg PO Q8H #30 tablet 03/28/18 Ipratropium/Albuterol Sulfate [Combivent Respimat Inhal [place]] 4 gm IH QID #1 aer.w.adap 03/28/18 Pantoprazole Sodium [Protonix -] 40 mg PO DAILY #30 tablet.ec 03/28/18 COPD: No - Immunization History Immunization Up to Date: Yes - Suicide/Smoking/Psychosocial Hx Smoking History: Never smoked Have you smoked in the past 12 months: No Information on smoking cessation initiated: No Hx Alcohol Use: No Drug/Substance Use Hx: No Substance Use Type: None *Physical Exam - Vital Signs Last Vital Signs Temp Pulse Resp BP Pulse Ox 97.6 F 72 18 117/71 100 07/31/18 14:43 07/31/18 14:43 07/31/18 14:43 07/31/18 14:43 07/31/18 14:43 *DC/Admit/Observation/Transfer Diagnosis at time of Disposition: Vaginal itching - Discharge Dispostion Condition at time of disposition: Stable - Referrals Referrals: Fanny Sheffield MD [Primary Care Provider] - - Patient Instructions Printed Discharge Instructions: DI for Vaginal Itching Additional Instructions: you were evaluated for your vaginal itching today. Your urine is negative for infection. Please use vagisil cream to the affected area twice a day. This is over-the- counter. He may also use Aquaphor to the area twice a day. Please follow up with her primary care doctor this week. Return to the ER for any new or worsening symptoms. - Post Discharge Activity
[2018-07-31 16:27] LABS: HCG,QUALITATIVE URINE Negative
== END 2018-07-31 17:09 | disposition home or self-care (01) ==
LOC: JERFT 14:30
DX: L29.2 Pruritus vulvae (principal)
CPT/HCPCS: 81003; 84703; 87086; 87186; 99281-25

== ENCOUNTER 2018-08-17 20:05 | Emergency (ER) | payer SELFPAY, OTHER | END 2018-08-18 00:53 | disposition home or self-care (01) | LOC: JER 08-18 00:53 | PROC: 3E033GC Introduction of Other Therapeutic Substance into Peripheral Vein, Percutaneous Approach (ICD-10-PCS; principal; 2018-08-17) | PROC: 3E033GC Introduction of Other Therapeutic Substance into Peripheral Vein, Percutaneous Approach (ICD-10-PCS; 2018-08-17) | PROC: 3E033NZ Introduction of Analgesics, Hypnotics, Sedatives into Peripheral Vein, Percutaneous Approach (ICD-10-PCS; 2018-08-17) | DX: R10.13 Epigastric pain (principal); W19.XXXA Unspecified fall, initial encounter; Y93.89 Activity, other specified; Y92.018 Other place in single-family (private) house as the place of occurrence of the external cause; Y99.8 Other external cause status ==

== ENCOUNTER 2019-04-14 16:33 | Emergency (ER) | payer OTHER ==
[2019-04-14] MEDS ORDERED: MAG HYDROX/AL HYDROX/SIMETH 30 ML UNIT-DOSE CUP PO ONE (16:50)
--- NOTE | 2019-04-14 16:50 | PDOC ---
Rapid Medical Evaluation Time Seen by Provider: 04/14/19 16:47 Medical Evaluation: Allergies Allergy/AdvReac Type Severity Reaction Status Date / Time No Known Allergies Allergy Verified 04/14/19 16:47 04/14/19 16:47 CC: flu-like illness Pt is a 43 y/o female with flu-like illness since last night. Last took Motrin last night. Daughter has the flu. Pt also complaining of epigastric abdominal pain. Brief exam: Generally unwell appearing, non-toxic, + epigastric abdominal pain to palpation Orders: cxr, maalox To ED for further evaluation Discharge Disposition - Diagnosis Flu-like symptoms - Referrals - Patient Instructions - Post Discharge Activity
[2019-04-14 16:51] VITALS: BP 133/79; PULSE 79; TEMP 98; BMI 26.5
--- NOTE | 2019-04-14 18:00 | PDOC ---
History of Present Illness - General Chief Complaint: Cold Symptoms Stated Complaint: FEVER Time Seen by Provider: 04/14/19 16:47 - History of Present Illness Initial Comments: 04/14/19 18:48 43 y/o F denies any significant medical hx, presents to the ED with 2 days of abdominal pain and fever this morning to 100.6. Pain is epigastric in location and stabbing in nature, 10/10 in severity and radiates to her left side. She denies any alleviating factors and has taken no medications for relief at home. Last time she ate was this afternoon about 5 hrs ago and pain was exacerbated by her food intake. she endorses nausea, non -bloody watery diarrhea, hematuria , dysuria, sick contacts (daughter with the flu).She denies any flank pain, emesis, chest pain, shortness of breath, hx of abdominal surgery. Past History - Past Medical History Allergies/Adverse Reactions: Allergies Allergy/AdvReac Type Severity Reaction Status Date / Time No Known Allergies Allergy Verified 04/14/19 16:47 Home Medications: Ambulatory Orders Cephalexin [Keflex] 500 mg PO BID 7 Days #14 capsule 04/14/19 Famotidine [Pepcid] 20 mg PO BID 7 Days #14 tablet 04/14/19 COPD: No - Immunization History Immunization Up to Date: Yes - Psycho Social/Smoking Cessation Hx Smoking History: Never smoked Have you smoked in the past 12 months: No Hx Alcohol Use: No Drug/Substance Use Hx: No Substance Use Type: None Review of Systems - Review of Systems Constitutional: Yes: Fever. No: Chills HEENTM: No: Eye Pain, Blurred Vision Respiratory: No: Cough, Shortness of Breath Cardiac (ROS): No: Chest Pain, Lightheadedness ABD/GI: No: Nausea, Vomiting : No: Burning, Dysuria Musculoskeletal: No: Back Pain, Joint Pain Integumentary: No: Bruising, Change in Color Neurological: No: Headache, Numbness *Physical Exam - Vital Signs Last Vital Signs Temp Pulse Resp BP Pulse Ox 98 F 79 24 H 133/79 98 04/14/19 16:49 04/14/19 16:49 04/14/19 16:49 04/14/19 16:49 04/14/19 16:49 - Physical Exam General Appearance: Yes: Nourished, Appropriately Dressed, Mild Distress HEENT: positive: SUZAN, Normal Voice Neck: positive: Trachea midline. negative: Decreased range of motion, Stridor, Lymphadenopathy (R) Respiratory/Chest: positive: Lungs Clear, Normal Breath Sounds. negative: Chest Tender, Respiratory Distress Cardiovascular: positive: Regular Rhythm, Regular Rate, S1, S2. negative: Edema , JVD, Murmur Gastrointestinal/Abdominal: positive: Normal Bowel Sounds, Tender, Soft. negative: Pulsatile Mass, Hernia, Mass Musculoskeletal: positive: Normal Inspection. negative: CVA Tenderness, CVA Tenderness (R) Extremity: positive: Normal Capillary Refill, Normal Inspection, Normal Range of Motion Integumentary: positive: Normal Color, Dry, Warm Neurologic: positive: ice cutter II-XII NML intact, Fully Oriented, Alert, Normal Mood/ Affect ED Treatment Course - LABORATORY CBC & Chemistry Diagram: 04/14/19 18:26 04/14/19 18:26 Medical Decision Making - Medical Decision Making 04/14/19 19:01 43 y/o F denies any significant medical hx, presents to the ED with 2 days of abdominal pain and fever this morning to 100.6. ddx includes gastritis vs pancreatitis vs cholelithasis/cholecystitis, atypical acs with uti workup ekg, cbc, cmp, ua, urine culture, lipase, meds: IV fluids (NS) pepcid,zofran, tylenol 04/14/19 19:20 Flu negative 04/14/19 19:40 Lipase negative, white count wnl Pt. reassessed, feels somewhat better after medications. 04/14/19 EKG: NSR, normal EKG On reassesment, patient is doing better, pain has subsided will be discharging home with meds and to follow up with primary care provider. Discharge - Discharge Information Problems reviewed: Yes Clinical Impression/Diagnosis: Flu-like symptoms, Epigastric abdominal pain Gastritis Qualifiers: Gastritis type: unspecified gastritis Chronicity: acute Gastritis bleeding: without bleeding Qualified Code(s): K29.00 - Acute gastritis without bleeding Condition: Improved - Additional Discharge Information Prescriptions: Cephalexin [Keflex] 500 mg PO BID 7 Days #14 capsule Famotidine [Pepcid] 20 mg PO BID 7 Days #14 tablet - Follow up/Referral Referrals: Fanny Sheffield MD [Primary Care Provider] - - Patient Discharge Instructions Patient Printed Discharge Instructions: Gastritis Additional Instructions: Return to the ER: If you develop stomach pain that progressively gets worse or doesn't go away; If you vomit blood or have black bowel movements; If you are losing weight (without trying); Avoid: NSAIDs- (e.g. Aspirin, Advil, Ibuprofen Motrin, Naproxen, Aleve)' Avoid alcoholic beverages; Take all medications as prescribed.; Call your healthcare provider for a follow-up appointment within one week - Post Discharge Activity
[2019-04-14] MEDS ORDERED: FAMOTIDINE 20 MG/50 ML IVPB 20 MG/50 ML MG IVPB ONE ×2 (18:22→18:35)
[2019-04-14] MEDS ORDERED: SODIUM CHLORIDE 0.9% 500 ML INFUS.BAG IV ONE (18:22)
[2019-04-14] MEDS ORDERED: ACETAMINOPHEN 1000 MG/100 ML VIAL (NON FORMULARY) IVPB ONE (18:22)
[2019-04-14] MEDS ORDERED: MAG HYDROX/AL HYDROX/SIMETH 30 ML UNIT-DOSE CUP ONE (18:35)
[2019-04-14] MEDS ORDERED: ACETAMINOPHEN INJECTION 100 ML IVPB ONE (18:35)
[2019-04-14 18:49] LABS: BASO % 0.7 % (0-2.0); EOS % 4.4 % (0-4.5); HEMATOCRIT 39.6 % (32.4-45.2); HEMOGLOBIN 12.7 GM/dL (10.7-15.3); LYMPH % 13.7 % (8-40); MCH 26.7 pg (25.7-33.7); MCHC 32.2 g/dl (32.0-36.0); MEAN CELL VOLUME 82.7 fl (80-96); MEAN PLT VOLUME 9.1 fl (7.5-11.1); MONO % 7.7 % (3.8-10.2); NEUT % 73.5 % (42.8-82.8); PLATELET COUNT 222 K/MM3 (134-434); RBC 4.78 M/mm3 (3.60-5.2); RDW 13.2 % (11.6-15.6); WHITE BLOOD COUNT 5.1 K/mm3 (4.0-10.0)
--- NOTE | 2019-04-14 19:17 | PDOC ---
Documentation entered by Lázaro Arias SCRIBE, acting as scribe for Anayeli Naylor DO. Anayeli Naylor DO: This documentation has been prepared by the Hugo juan Daniel, SCRIBE, under my direction and personally reviewed by me in its entirety. I confirm that the documentation accurately reflects all work, treatment, procedures, and medical decision making performed by me. Attending Attestation - Resident Resident Name: LillyRishijanetshelton - ED Attending Attestation I have performed the following: I have examined & evaluated the patient, The case was reviewed & discussed with the resident, I agree w/resident's findings & plan, Exceptions are as noted - HPI HPI: 04/14/19 18:35 The patient is a 43 year old female with no past medical history here today for evaluation of epigastric pain. The patient reports that she has had 2 days of epigastric pain that is stabbing in nature and left sided. She also notes associated nausea, watery diarrhea, and temperature today of 100.6. She notes that her daughter has the flu. Patient also reports that she has had hematuria and burning with urination for 3 weeks. Patient denies headache, lightheadedness. Denies chills. Denies chest pain, shortness of breath. Denies vomiting. Allergies: NKA Surgical history: PCP: Fanny Sheffield - Physicial Exam PE: 04/14/19 18:35 Constitutional: Awake, alert, oriented. No acute distress. Head: Normocephalic. Atraumatic Eyes: PERRL. EOMI. Conjunctivae are not pale. ENT: Mucous membranes are moist and intact. Posterior pharynx without exudates or erythema. Uvula midline. Neck: Supple. Full ROM. No lymphadenopathy. Cardiovascular: Regular rate. Regular rhythm. S1, S2 regular. Distal pulses are 2+ and symmetric. Pulmonary/Chest: No evidence of respiratory distress. Clear to auscultation bilaterally No wheezing, rales or rhonchi. Abdominal: +mild epigastric tenderness. +suprapubic tenderness. Soft and non- distended. No rebound, guarding or rigidity. No organomegaly. No palpable masses. Good bowel sounds. Back: No CVA tenderness. Musculoskeletal: No edema. No cyanosis. No clubbing. Full range of motion in all extremities. No calf tenderness. Radial/pedal pulses are intact and 2+ bilaterally Skin: Skin is warm and dry. No petechiae. No purpura. Neurological: Alert and oriented to person, place, and time. Cranial nerves II -XII are grossly intact. Normal speech. Strength is grossly symmetric. No sensory deficits. Psychiatric: Good eye contact. Normal interaction, affect and behavior. - Medical Decision Making 04/14/19 19:10 a/p: 43yo female with fever yesterday and this am, which has resolved -pt with 3 weeks of dysuria and hematuria -pt with suprapubic pain -suspect uti -no cva ttp -will send labs, ua, ucx -will send ucg -will medicate for pain -will monitor and reassess 04/14/19 19:18 flu neg no elevated wbc 04/14/19 20:31 pt feeling better will dc with abx for uti and pepcid pt states pain resolved stable for dc to home Heart Score/ECG Review - ECG Intrepretation Comment:: 04/14/19 20:31 sinus at 74, nl axis, nl interval, no acute st/t wave findings
[2019-04-14 19:21] LABS: EPI CELLS 1.1 /HPF (0-5/HPF); HYALINE CASTS 2 /lpf (0-8); URINE APPEARANCE CLEAR; URINE BACTERIA 30.8 /hpf (NEGATIVE); URINE BILIRUBIN NEGATIVE (NEGATIVE); URINE COLOR YELLOW; URINE GLUCOSE (UA) NEGATIVE (NEGATIVE); URINE KETONE NEGATIVE (NEGATIVE); URINE LEUK ESTERASE NEGATIVE (NEGATIVE); URINE NITRITE NEGATIVE (NEGATIVE); URINE PROTEIN NEGATIVE (NEGATIVE); URINE RBC 3 /hpf (0-4); URINE WBC 2 /hpf (0-5)
[2019-04-14 19:26] LABS: ALBUMIN 3.8 g/dl (3.4-5.0); BILIRUBIN,TOTAL 0.4 mg/dL (0.2-1); BLOOD UREA NITROGEN 10.8 mg/dL (7-18); CALCIUM 8.4 mg/dL (8.5-10.1); CREATININE 0.6 mg/dL (0.55-1.3); POTASSIUM 3.4 mmol/L (3.5-5.1); TOT PROT 7.4 g/dl (6.4-8.2)
--- NOTE | 2019-04-15 15:09 | EKG ---
Test Reason : Blood Pressure : / mmHG Vent. Rate : 074 BPM Atrial Rate : 074 BPM P-R Int : 134 ms QRS Dur : 086 ms QT Int : 402 ms P-R-T Axes : 028 006 032 degrees QTc Int : 446 ms NORMAL SINUS RHYTHM WHEN COMPARED WITH ECG OF 17-AUG-2018 21:22, T WAVE AMPLITUDE HAS DECREASED IN LATERAL LEADS Confirmed by CLEO CASSIDY MD ([id number]) on 04/15/2019 3:08:56 PM Referred By: Confirmed By:CLEO CASSIDY MD
== END 2019-04-14 20:52 | disposition home or self-care (01) ==
LOC: JERFT 16:33 → JER 16:33
PROC: 3E033GC Introduction of Other Therapeutic Substance into Peripheral Vein, Percutaneous Approach (ICD-10-PCS; principal; 2019-04-14)
PROC: 3E033GC Introduction of Other Therapeutic Substance into Peripheral Vein, Percutaneous Approach (ICD-10-PCS; 2019-04-14)
PROC: 3E033NZ Introduction of Analgesics, Hypnotics, Sedatives into Peripheral Vein, Percutaneous Approach (ICD-10-PCS; 2019-04-14)
DX: K29.00 Acute gastritis without bleeding (principal); N39.0 Urinary tract infection, site not specified; J11.2 Influenza due to unidentified influenza virus with gastrointestinal manifestations
CPT/HCPCS: 36415; 71046-TC-FY; 80053; 81003; 83690; 84484; 84703; 85025; 87086; 87804; 93005; 93010; 99282-25; J0131

== ENCOUNTER 2022-11-05 18:51 | Emergency (ER) | payer OTHER ==
[2022-11-05 19:00] VITALS: BMI 25.6
[2022-11-05 19:45] VITALS: RESP 24
[2022-11-05 20:07] LABS: BASO % 1.1 % (0-2.0); EOS % 2.2 % (0-4.5); HEMATOCRIT 37.5 % (32.4-45.2); HEMOGLOBIN 12.2 GM/dL (10.7-15.3); LYMPH % 25.9 % (8-40); MCH 26.6 pg (25.7-33.7); MCHC 32.5 g/dl (32.0-36.0); MEAN CELL VOLUME 82.1 fl (80-96); MEAN PLT VOLUME 9.2 fl (7.5-11.1); MONO % 6.5 % (3.8-10.2); NEUT % 64.3 % (42.8-82.8); PLATELET COUNT 227 10^3/uL (134-434); RBC 4.57 M/mm3 (3.60-5.2); RDW 12.8 % (11.6-15.6); WHITE BLOOD COUNT 6.1 K/mm3 (4.0-10.0)
[2022-11-05 20:19] LABS: INR 0.98 (0.83-1.09); PROTHROMBIN TIME (PATIENT) 11.4 SEC (9.7-13.0)
[2022-11-05 20:21] LABS: ACTIVATED PTT 27.2 SECONDS (25.2-36.5); POTASSIUM 3.8 mmol/L (3.5-5.1)
[2022-11-05 20:23] LABS: CALCIUM 8.9 mg/dL (8.5-10.1)
[2022-11-05 20:24] LABS: ALBUMIN 3.6 g/dl (3.4-5.0); BLOOD UREA NITROGEN 10.6 mg/dL (7-18)
[2022-11-05 20:27] LABS: CREATININE 0.5 mg/dL (0.55-1.3)
[2022-11-05 20:29] LABS: BILIRUBIN,TOTAL 0.2 mg/dL (0.2-1)
[2022-11-05 20:39] LABS: EPI CELLS 11 /uL (0-25.1); HYALINE CASTS 0 /uL (0-3.1); URINE APPEARANCE CLOUDY; URINE BACTERIA >9,000 /uL (0-1359); URINE BILIRUBIN NEGATIVE (NEGATIVE); URINE COLOR RED; URINE GLUCOSE (UA) NEGATIVE (NEGATIVE); URINE KETONE NEGATIVE (NEGATIVE); URINE LEUK ESTERASE 1+ (NEGATIVE); URINE NITRITE NEGATIVE (NEGATIVE); URINE PROTEIN 1+ (NEGATIVE); URINE RBC 16639 /uL (0-23.9); URINE UROBILINOGEN 0.2 mg/dL (0.2-1.0); URINE WBC 53 /uL (0-25.8)
[2022-11-05] MEDS ORDERED: KETOROLAC TROMETHAMINE 15 MG/ML VIAL IVPUSH ONE (20:56)
[2022-11-05] MEDS ORDERED: CEFTRIAXONE 1 GM/50 ML BAG ONE (22:08)
[2022-11-05] MEDS ORDERED: KETOROLAC TROMETHAMINE 15 MG/ML VIAL ONE (22:08)
[2022-11-05 23:47] VITALS: BP 155/70; PULSE 69; TEMP 98.8
== END 2022-11-06 02:33 | disposition home or self-care (01) ==
LOC: JER 18:51
PROC: 3E03329 Introduction of Other Anti-infective into Peripheral Vein, Percutaneous Approach (ICD-10-PCS; principal; 2022-11-05)
PROC: 3E0333Z Introduction of Anti-inflammatory into Peripheral Vein, Percutaneous Approach (ICD-10-PCS; 2022-11-05)
DX: N92.6 Irregular menstruation, unspecified (principal); R10.30 Lower abdominal pain, unspecified; R10.12 Left upper quadrant pain
CPT/HCPCS: 36415; 76830-TC; 80053; 81003; 84703; 85025; 85610; 85730; 86850; 86900; 86901; 87086; 87186; 99284-25

== ENCOUNTER 2023-02-10 17:59 | Observation (INO) | payer OTHER ==
[2023-02-10] MEDS ORDERED: SODIUM CHLORIDE 0.9% 500 ML INFUS.BAG IV ONE ×3 (18:47→21:39)
[2023-02-10 19:13] LABS: VENOUS O2 SATURATION 46.7 % (70-80); VENOUS PCO2 52.2 mmHg (38-52); VENOUS PH 7.343 (7.310-7.410)
[2023-02-10 19:15] LABS: BASO % 0.8 % (0-2.0); EOS % 1.5 % (0-4.5); HEMATOCRIT 41.9 % (32.4-45.2); HEMOGLOBIN 13.8 GM/dL (10.7-15.3); LYMPH % 14.7 % (8-40); MCH 25.5 pg (25.7-33.7); MEAN CELL VOLUME 77.2 fl (80-96); MEAN PLT VOLUME 10.4 fl (7.5-11.1); MONO % 4.7 % (3.8-10.2); NEUT % 78.3 % (42.8-82.8); PLATELET COUNT 180 10^3/uL (134-434); RBC 5.42 M/mm3 (3.60-5.2); RDW 12.7 % (11.6-15.6)
[2023-02-10 20:59] LABS: CHLORIDE 94 mmol/L (98-107); SODIUM 132 mmol/L (136-145)
[2023-02-10 21:02] LABS: ALBUMIN 3.8 g/dl (3.4-5.0); ANION GAP 10 mmol/L (4-13); BLOOD UREA NITROGEN 15.5 mg/dL (7-18); CO2 27 mmol/L (21-32); LIPASE 225 U/L (73-393); MAGNESIUM 2.2 mg/dL (1.8-2.4)
[2023-02-10 21:05] LABS: PHOSPHOROUS 3.6 mg/dL (2.5-4.9); SGOT/AST 26 U/L (15-37); SGPT/ALT 56 U/L (13-61)
[2023-02-10 21:06] LABS: BILIRUBIN,TOTAL 0.4 mg/dL (0.2-1); TOT PROT 7.7 g/dl (6.4-8.2)
[2023-02-10 21:07] LABS: ALK PHOS 138 U/L (45-117)
[2023-02-10 22:44] LABS: GLUCOSE,RANDOM 651 mg/dL (74-106)
[2023-02-10] MEDS ORDERED: INSULIN REGULAR HUMAN 100 UNITS/ML *VIAL SQ ONE (22:58)
[2023-02-10] MEDS ORDERED: INSULIN REGULAR HUMAN 100 UNITS/ML *VIAL ONE (23:03)
[2023-02-10] MEDS: SODIUM CHLORIDE 1,000 ML IV SCH (23:09)
[2023-02-11] MEDS ORDERED: DOCUSATE SODIUM 100 MG CAPSULE (FP) PO PRN (01:41)
[2023-02-11] MEDS ORDERED: ACETAMINOPHEN 325 MG TABLET (FP) PO PRN (01:41)
[2023-02-11] MEDS: SODIUM CHLORIDE 1,000 ML IV SCH ×2 (03:50→18:41)
[2023-02-11] MEDS: INSULIN SLIDING SCALE (NOVOLOG) 1 VIAL SQ SCH ×4 (05:30→22:08)
[2023-02-11] MEDS ORDERED: INSULIN (LEVEMIR) 100 UNITS/ML UNITS SQ ONE (08:00)
[2023-02-11 08:13] LABS: EPI CELLS 19 /uL (0-25.1); HYALINE CASTS 1 /uL (0-3.1); URINE APPEARANCE CLOUDY; URINE BACTERIA >9,000 /uL (0-1359); URINE BILIRUBIN NEGATIVE (NEGATIVE); URINE COLOR YELLOW; URINE GLUCOSE (UA) 3+ (NEGATIVE); URINE KETONE 1+ (NEGATIVE); URINE LEUK ESTERASE NEGATIVE (NEGATIVE); URINE NITRITE NEGATIVE (NEGATIVE); URINE PROTEIN NEGATIVE (NEGATIVE); URINE RBC 36 /uL (0-23.9)
[2023-02-11] MEDS ORDERED: INSULIN (LEVEMIR) 100 UNITS/ML UNITS SQ SCH (10:00)
[2023-02-11 10:46] LABS: EOS % 3.3 % (0-4.5); HEMATOCRIT 33.7 % (32.4-45.2); HEMOGLOBIN 11.3 GM/dL (10.7-15.3); MCH 25.8 pg (25.7-33.7); MCHC 33.5 g/dl (32.0-36.0); MEAN CELL VOLUME 77.1 fl (80-96); MEAN PLT VOLUME 10.5 fl (7.5-11.1); MONO % 7.2 % (3.8-10.2); NEUT % 64.5 % (42.8-82.8); PLATELET COUNT 133 10^3/uL (134-434); RBC 4.37 M/mm3 (3.60-5.2); RDW 12.6 % (11.6-15.6); WHITE BLOOD COUNT 5.4 K/mm3 (4.0-10.0)
[2023-02-11 12:12] LABS: POTASSIUM 3.9 mmol/L (3.5-5.1)
[2023-02-11 12:18] LABS: BLOOD UREA NITROGEN 12.4 mg/dL (7-18)
[2023-02-11 12:22] LABS: CREATININE 0.6 mg/dL (0.55-1.3)
[2023-02-11 18:28] VITALS: BMI 28.1
[2023-02-11] MEDS: INSULIN (LEVEMIR) 100 UNITS/ML UNITS SQ SCH ×3 (22:09→23:29)
[2023-02-12] MEDS: SODIUM CHLORIDE 1,000 ML IV SCH (03:40)
[2023-02-12] MEDS: INSULIN SLIDING SCALE (NOVOLOG) 1 VIAL SQ SCH ×3 (06:13→17:29)
[2023-02-12] MEDS: INSULIN (LEVEMIR) 100 UNITS/ML UNITS SQ SCH (06:13)
[2023-02-12] MEDS: INSULIN (NOVOLOG) ASPART 100 UNITS/ML 10ML VIAL SQ SCH ×3 (06:19→17:29)
[2023-02-12] MEDS ORDERED: CEFTRIAXONE 1 GM in DEXTROSE 5%-WATER - 50 ML IVPB ONE (12:15)
[2023-02-12 16:04] VITALS: BP 100/55; PULSE 84; RESP 18; TEMP 98.5
[2023-02-12] MEDS ORDERED: SODIUM CHLORIDE 1,000 ML IV SCH (16:48)
== END 2023-02-12 18:29 | disposition home or self-care (01) ==
LOC: JER 17:59 → INTOOBSV 20:47 → JERBED 20:47 → J5S 02-11 04:00
PROVIDERS: ADMIT Internal Medicine; ATTEND Family Medicine
PROC: 3E03329 Introduction of Other Anti-infective into Peripheral Vein, Percutaneous Approach (ICD-10-PCS; principal; 2023-02-10)
PROC: 3E013VG Introduction of Insulin into Subcutaneous Tissue, Percutaneous Approach (ICD-10-PCS; 2023-02-10)
PROC: 3E023GC Introduction of Other Therapeutic Substance into Muscle, Percutaneous Approach (ICD-10-PCS; 2023-02-10)
PROC: 3E0337Z Introduction of Electrolytic and Water Balance Substance into Peripheral Vein, Percutaneous Approach (ICD-10-PCS; 2023-02-10)
DX: E11.65 Type 2 diabetes mellitus with hyperglycemia (principal); E86.0 Dehydration; R42 Dizziness and giddiness; R55 Syncope and collapse; R53.83 Other fatigue; R74.8 Abnormal levels of other serum enzymes
CPT/HCPCS: 36415; 70450-TC; 71046-TC-FY; 76705-TC; 80048; 80053; 81003; 82010; 82803; 82962; 83036; 83605; 83690; 83735; 84100; 84484; 85025; 87086; 87186; 93005; 93010; 96361; 96365; 96372; 99285-25; G0378

== ENCOUNTER 2024-05-01 21:35 | Emergency (ER) | payer OTHER ==
[2024-05-01 21:39] VITALS: BP 115/71; PULSE 60; RESP 18; TEMP 97.7; BMI 22.3
[2024-05-01] MEDS ORDERED: morphine SULFATE 4 MG/ML VIAL ONE (22:25)
[2024-05-01] MEDS ORDERED: ONDANSETRON 4 MG/2 ML VIAL ONE (22:25)
[2024-05-01] MEDS: ONDANSETRON 4 MG/2 ML VIAL IVPUSH ONE (22:46)
[2024-05-01] MEDS: morphine CARPU-JECT 4 MG/1 ML DISP.SYRIN IVPUSH ONE (22:46)
[2024-05-01 22:50] LABS: HEMATOCRIT 37.8 % (32.4-45.2); HEMOGLOBIN 12.4 GM/dL (10.7-15.3); MCH 26.4 pg (25.7-33.7); MCHC 32.8 g/dl (32.0-36.0); MEAN CELL VOLUME 80.4 fl (80-96); PLATELET COUNT 200 10^3/uL (134-434); RBC 4.71 M/mm3 (3.60-5.2); WHITE BLOOD COUNT 6.1 K/mm3 (4.0-10.0)
[2024-05-01 22:57] LABS: INR 0.99 (0.83-1.09); PROTHROMBIN TIME (PATIENT) 10.8 SEC (9.7-13.0)
[2024-05-01 23:01] LABS: POTASSIUM 3.3 mmol/L (3.5-5.1)
[2024-05-01 23:03] LABS: CALCIUM 8.8 mg/dL (8.5-10.1)
[2024-05-01 23:04] LABS: ALBUMIN 3.4 g/dl (3.4-5.0); BLOOD UREA NITROGEN 15.7 mg/dL (7-18)
[2024-05-01 23:07] LABS: CREATININE 0.6 mg/dL (0.55-1.3)
[2024-05-01 23:08] LABS: BILIRUBIN,TOTAL 0.3 mg/dL (0.2-1); TOT PROT 6.6 g/dl (6.4-8.2)
== END 2024-05-02 01:52 | disposition home or self-care (01) ==
LOC: JER 21:35
PROC: 3E033NZ Introduction of Analgesics, Hypnotics, Sedatives into Peripheral Vein, Percutaneous Approach (ICD-10-PCS; principal; 2024-05-01)
PROC: 3E033GC Introduction of Other Therapeutic Substance into Peripheral Vein, Percutaneous Approach (ICD-10-PCS; 2024-05-01)
DX: R10.31 Right lower quadrant pain (principal); R10.11 Right upper quadrant pain; R11.2 Nausea with vomiting, unspecified; R19.7 Diarrhea, unspecified
CPT/HCPCS: 36415; 71045-TC-FY; 74160-TC; 80053; 82150; 83605; 83690; 84484; 84703; 85027; 85610; 86850; 86900; 86901; 93005; 93010; 99285-25